=== PATIENT | male | born 1975 | race Caucasian/White ===

== ENCOUNTER 2021-01-27 11:59 | Emergency (ER) | payer BC ==
[~2021-01-27] VITALS: Ht 188 cm; Wt 95.5 kg
[2021-01-27 12:04] VITALS: BP 125/88; TEMP 98
[2021-01-27] MEDS ORDERED: POLYMYXIN B/TRIMETH OS (12:57)
[2021-01-27 13:05] VITALS: PULSE 68
== END 2021-01-27 13:05 | disposition home or self-care (01) ==
LOC: COL.ER 11:59
DX: S05.01XA Injury of conjunctiva and corneal abrasion without foreign body, right eye, initial encounter (principal); Z98.890 Other specified postprocedural states; W45.8XXA Other foreign body or object entering through skin, initial encounter
CPT/HCPCS: J7030